=== PATIENT | male | born 1990 | race African-American/Black ===

== ENCOUNTER 2017-09-16 14:39 | Emergency (ER) | payer OTHER ==
[2017-09-16 14:48] VITALS: BMI 21.1
[2017-09-16] MEDS ORDERED: ACETAMINOPHEN 325 MG TABLET (FP) PO ONE (15:11)
[2017-09-16] MEDS ORDERED: SODIUM CHLORIDE 1,000 ML IV STA (15:11)
[2017-09-16] MEDS ORDERED: PANTOPRAZOLE SODIUM 40 MG VIAL IVPUSH ONE (15:11)
[2017-09-16] MEDS ORDERED: MAG HYDROX/AL HYDROX/SIMETH 30 ML UNIT-DOSE CUP PO ONE (15:11)
[2017-09-16] MEDS ORDERED: FAMOTIDINE IV 20 MG/12 ML VIAL IVPUSH ONE (15:11)
[2017-09-16] MEDS ORDERED: ONDANSETRON 4 MG/2 ML VIAL IVPB ONE (15:11)
--- NOTE | 2017-09-16 15:16 | PDOC ---
History of Present Illness - History of Present Illness Initial Comments: 09/16/17 15:23 Patient is a 27 M, with PMHx of sickle cell trait, who presents today for loss of appetite for 5 days. Patient also reports vomit since , loose watery stools, nausea (worse after eating, improves after smoking), and epigastric pain. Patient reports that he has experienced this before last year, etiology unknown. Patient reports that last month he participated in a study at [facility] about the effects of certain pills and marijuana use. He was given placebo pills and some other pill for 5 days. He states that he tried taking pepto bismol with no relief. He also tried eating but he vomits every time he eats no matter what he eats. Patient denies sick contacts, recent travel. Allergies: amoxicillan Social Hx: smokes marijuana. Denies EtOH use. <Sadaf Singleton - Last Filed: 09/16/17 15:30> - General History Source: Patient Exam Limitations: No Limitations <Davidson Grayson - Last Filed: 09/16/17 19:13> <Rhoda Guzman - Last Filed: 09/16/17 20:20> - General Chief Complaint: Vomiting/Diarrhea Stated Complaint: VOMITING, DIARRHEA Time Seen by Provider: 09/16/17 15:03 Past History <Sadaf Singleton - Last Filed: 09/16/17 15:30> - Past Medical History COPD: No - Suicide/Smoking/Psychosocial Hx Smoking History: Current every day smoker Number of Cigarettes Smoked Daily: 10 Information on smoking cessation initiated: No <Davidson Grayson - Last Filed: 09/16/17 19:13> <Rhoda Guzman - Last Filed: 09/16/17 20:20> - Past Medical History Allergies/Adverse Reactions: Allergies Allergy/AdvReac Type Severity Reaction Status Date / Time amoxicillin [Amoxicillin] Allergy Verified 09/16/17 14:48 Home Medications: Ambulatory Orders Acetaminophen [Tylenol] 650 mg PO Q4H PRN #20 tablet 09/16/17 Mag Hydrox/Al Hydrox/Simeth [Mylanta Suspension -] 30 ml PO Q6H PRN #1 bottle Ondansetron HCl [Zofran] 4 mg PO Q8H PRN #20 tablet 09/16/17 Pantoprazole Sodium [Protonix] 40 mg PO DAILY #14 tablet. 09/16/17 Ranitidine HCl [Zantac] 150 mg PO BID PRN #20 tablet 09/16/17 Review of Systems - Review of Systems Comments:: 09/16/17 15:23 GENERAL/CONSTITUTIONAL: No fever or chills. HEAD, EYES, EARS, NOSE AND THROAT: No change in vision. No ear pain or discharge. No sore throat. CARDIOVASCULAR: No chest pain or shortness of breath. RESPIRATORY: No cough, wheezing, or hemoptysis. GASTROINTESTINAL: +nausea, +vomiting, +diarrhea GENITOURINARY: No dysuria, frequency, or change in urination. MUSCULOSKELETAL: No joint or muscle swelling or pain. No neck or back pain. SKIN: No rash NEUROLOGIC: No headache, vertigo, loss of consciousness, or change in strength/ sensation. ENDOCRINE: +decreased po intake. + loss of appetite. No increased thirst. HEMATOLOGIC/LYMPHATIC: No anemia, easy bleeding, or history of blood clots. ALLERGIC/IMMUNOLOGIC: No hives or skin allergy. <Sadaf Singleton - Last Filed: 09/16/17 15:30> *Physical Exam - Vital Signs Last Vital Signs Temp Pulse Resp BP Pulse Ox 98 F 60 18 139/73 99 09/16/17 14:45 09/16/17 14:45 09/16/17 14:45 09/16/17 14:45 09/16/17 14:45 - Physical Exam Comments: 09/16/17 15:32 GENERAL: Awake, alert, and fully oriented, in no acute distress HEAD: No signs of trauma EYES: PERRLA, EOMI, sclera anicteric, conjunctiva clear ENT: Auricles normal inspection, hearing grossly normal, nares patent, oropharynx clear without exudates. Moist mucosa NECK: Normal ROM, supple, no lymphadenopathy, JVD, or masses LUNGS: Breath sounds equal, clear to auscultation bilaterally. No wheezes, and no crackles HEART: Regular rate and rhythm, normal S1 and S2, no murmurs, rubs or gallops ABDOMEN: Soft, right upper quadrant tenderness. Normoactive bowel sounds. No guarding, no rebound. No masses EXTREMITIES: Normal range of motion, no edema. No clubbing or cyanosis. No cords, erythema, or tenderness NEUROLOGICAL: Cranial nerves II through XII grossly intact. Normal speech, normal gait SKIN: Warm, Dry, normal turgor, no rashes or lesions noted. <Sadaf Singleton - Last Filed: 09/16/17 15:30> - Vital Signs Last Vital Signs Temp Pulse Resp BP Pulse Ox 98 F 60 18 139/73 99 09/16/17 14:45 09/16/17 14:45 09/16/17 14:45 09/16/17 14:45 09/16/17 14:45 <Davidson Grayson - Last Filed: 09/16/17 19:13> - Vital Signs Last Vital Signs Temp Pulse Resp BP Pulse Ox 98.8 F 53 L 16 117/69 100 09/16/17 18:42 09/16/17 18:42 09/16/17 18:42 09/16/17 18:42 09/16/17 18:42 <Rhoda Guzman - Last Filed: 09/16/17 20:20> ED Treatment Course - LABORATORY CBC & Chemistry Diagram: 09/16/17 15:19 09/16/17 15:19 <Sadaf Singleton - Last Filed: 09/16/17 15:30> - LABORATORY CBC & Chemistry Diagram: 09/16/17 15:19 09/16/17 15:19 - RADIOLOGY Radiology Studies Ordered: Category Date Time Status ABDOMEN US -LIMITED [US] Stat Ultrasound 09/16/17 15:11 Ordered <Davidson Grayson - Last Filed: 09/16/17 19:13> - LABORATORY CBC & Chemistry Diagram: 09/16/17 15:19 09/16/17 15:19 - ADDITIONAL ORDERS Additional order review: Laboratory Results 09/16/17 09/16/17 15:19 15:11 Sodium 135 L Potassium 4.0 Chloride 98 Carbon Dioxide 26 Anion Gap 11 BUN 9 Creatinine 1.1 Creat Clearance w eGFR > 60 Random Glucose 95 Calcium 9.7 Total Bilirubin 1.1 H AST 14 L ALT 25 Alkaline Phosphatase 68 Total Protein 8.8 H Albumin 4.6 Lipase 100 Urine Color Yellow Urine Appearance Clear Urine pH 5.0 Ur Specific [place] 1.027 Urine Protein Negative Urine Glucose (UA) Negative Urine Ketones 2+ H Urine Blood Negative Urine Nitrite Negative Urine Bilirubin Negative Urine Urobilinogen Negative Ur Leukocyte Esterase Negative 09/16/17 15:19 RBC 5.46 MCV 86.6 MCHC 32.8 RDW 13.7 MPV 8.1 Neutrophils % 63.6 Lymphocytes % 24.2 Monocytes % 11.2 H Eosinophils % 0.4 Basophils % 0.6 - Medications Given in the ED: ED Medications Discontinued Medications Generic Name Dose Route Start Last Admin Trade Name Agustina PRN Reason Stop Dose Admin Acetaminophen 650 mg 09/16/17 15:11 09/16/17 15:30 Tylenol - PO 09/16/17 15:12 650 mg ONCE ONE Administration Al Hydroxide/Mg Hydroxide 30 ml 09/16/17 15:11 09/16/17 15:30 Mylanta Oral Suspension - PO 09/16/17 15:12 30 ml ONCE ONE Administration Famotidine 20 mg in 12 mls @ 144 mls/hr 09/16/17 15:11 09/16/17 15:30 Pepcid 20 Mg/12 Ml Push IVPUSH 09/16/17 15:15 144 mls/hr ONCE ONE Administration Sodium Chloride 1,000 mls @ 1,000 mls/hr 09/16/17 15:11 09/16/17 15:30 Normal Saline - IV 09/16/17 16:10 1,000 mls/hr ASDIR STA Administration Ondansetron HCl 4 mg 09/16/17 15:11 09/16/17 15:30 Zofran Injection IVPB 09/16/17 15:12 4 mg ONCE ONE Administration Pantoprazole Sodium 40 mg 09/16/17 15:11 09/16/17 15:30 Protonix Iv IVPUSH 09/16/17 15:12 40 mg ONCE ONE Administration <Rhoda Guzman - Last Filed: 09/16/17 20:20> Medical Decision Making - Medical Decision Making 09/16/17 15:15 A portion of this note was documented by scribe services under my direction. I have reviewed the details of the note, within reason, and agree with the documentation with the following case summary and management plan written by me. Patient treated in the ED. Nursing notes are reviewed and incorporated into the medical decision-making. Vital signs reviewed. Peripheral IV access obtained by the nurse, laboratory studies are drawn and sent, reviewed and interpreted by myself. Vital Signs Temp Pulse Resp BP Pulse Ox 98 F 60 18 139/73 99 09/16/17 14:45 09/16/17 14:45 09/16/17 14:45 09/16/17 14:45 09/16/17 14:45 27-year-old male with no past medical history presents with nausea, vomiting, diarrhea for 4 days. Patient reports decreased appetite and noted he is developing epigastric pain. States that eating or drinking worsens the symptoms. Denies fevers or chills or sick contacts. Denies going camping. Denies recent traveling. It is possible that this may be gastritis. However, we'll obtain a right upper quadrant ultrasound given the right upper quadrant pain. Rule out pancreatitis rule out enteritis. It may be possible this is also gastritis as well. Medications and reassess. 09/16/17 18:58 CBC, BMP 09/16/17 15:19 09/16/17 15:19 CMP Sodium 135 mmol/L (136-145) L 09/16/17 15:19 Potassium 4.0 mmol/L (3.5-5.1) 09/16/17 15:19 Chloride 98 mmol/L (98-107) 09/16/17 15:19 Carbon Dioxide 26 mmol/L (21-32) 09/16/17 15:19 Anion Gap 11 (8-16) 09/16/17 15:19 BUN 9 mg/dL (7-18) 09/16/17 15:19 Creatinine 1.1 mg/dL (0.7-1.3) 09/16/17 15:19 Creat Clearance w eGFR > 60 (>60) 09/16/17 15:19 Random Glucose 95 mg/dL (74-106) 09/16/17 15:19 Calcium 9.7 mg/dL (8.5-10.1) 09/16/17 15:19 Total Bilirubin 1.1 mg/dL (0.2-1.0) H 09/16/17 15:19 AST 14 U/L (15-37) L 09/16/17 15:19 ALT 25 U/L (12-78) 09/16/17 15:19 Alkaline Phosphatase 68 U/L (45-117) 09/16/17 15:19 Total Protein 8.8 g/dl (6.4-8.2) H 09/16/17 15:19 Albumin 4.6 g/dl (3.4-5.0) 09/16/17 15:19 Lipase 100 U/L (73-393) 09/16/17 15:19 Urine Test Results Urine Color Yellow 09/16/17 15:11 Urine Appearance Clear 09/16/17 15:11 Urine pH 5.0 (5.0-8.0) 09/16/17 15:11 Ur Specific [place] 1.027 (1.001-1.035) 09/16/17 15:11 Urine Protein Negative (NEGATIVE) 09/16/17 15:11 Urine Glucose (UA) Negative (NEGATIVE) 09/16/17 15:11 Urine Ketones 2+ (NEGATIVE) H 09/16/17 15:11 Urine Blood Negative (NEGATIVE) 09/16/17 15:11 Urine Nitrite Negative (NEGATIVE) 09/16/17 15:11 Urine Bilirubin Negative (NEGATIVE) 09/16/17 15:11 Ur Leukocyte Esterase Negative (NEGATIVE) 09/16/17 15:11 Pt reports feeling moderately better. U/s pending. Case signed out to Dr. Guzman for further management and disposition. <Davidson Grayson - Last Filed: 09/16/17 19:13> *DC/Admit/Observation/Transfer - Attestations Scribe Attestion: 09/16/17 15:33 Documentation prepared by Sadaf Singleton, acting as medical records analyst for Davidson Grayson MD. <Sadaf Singleton - Last Filed: 09/16/17 15:30> <Davidson Grayson - Last Filed: 09/16/17 19:13> - Discharge Dispostion Admit: No <Rhoda Guzman - Last Filed: 09/16/17 20:20> Diagnosis at time of Disposition: Vomiting Qualifiers: Vomiting type: unspecified Vomiting Intractability: non-intractable Nausea presence: without nausea Qualified Code(s): R11.11 - Vomiting without nausea Diarrhea Qualifiers: Diarrhea type: unspecified type Qualified Code(s): R19.7 - Diarrhea, unspecified - Discharge Dispostion Disposition: HOME Condition at time of disposition: Stable - Prescriptions Prescriptions: Acetaminophen [Tylenol] 650 mg PO Q4H PRN #20 tablet PRN Reason: Pain Mag Hydrox/Al Hydrox/Simeth [Mylanta Suspension -] 30 ml PO Q6H PRN #1 bottle PRN Reason: Pain Ondansetron HCl [Zofran] 4 mg PO Q8H PRN #20 tablet PRN Reason: Nausea Pantoprazole Sodium [Protonix] 40 mg PO DAILY #14 tablet. Ranitidine HCl [Zantac] 150 mg PO BID PRN #20 tablet PRN Reason: GERD - Referrals Referrals: Joselito Eduardo MD [Primary Care Provider] - Venkata Barlow MD [Staff Physician] - - Patient Instructions Printed Discharge Instructions: DI for Gastritis, DI for Abdominal Pain-Adult, DI for Vomiting -- Adult Additional Instructions: Please drink plenty of fluids. Take the medications as needed for symptom control. Follow up with your doctor. - Post Discharge Activity
[2017-09-16 15:26] LABS: BASO % 0.6 % (0-2.0); EOS % 0.4 % (0-4.5); HEMATOCRIT 47.2 % (35.4-49); HEMOGLOBIN 15.5 GM/dL (11.7-16.9); LYMPH % 24.2 % (8-40); MCH 28.4 pg (25.7-33.7); MCHC 32.8 g/dl (32.0-35.9); MEAN CELL VOLUME 86.6 fl (80-96); MEAN PLT VOLUME 8.1 fl (7.5-11.1); MONO % 11.2 % (3.8-10.2); NEUT % 63.6 % (42.8-82.8); PLATELET COUNT 196 K/MM3 (134-434); RBC 5.46 M/mm3 (4.00-5.60); RDW 13.7 % (11.9-15.9); WHITE BLOOD COUNT 5.2 K/mm3 (4.0-10.0)
[2017-09-16] MEDS ORDERED: PANTOPRAZOLE SODIUM 40 MG VIAL ONE (15:29)
[2017-09-16] MEDS ORDERED: ONDANSETRON 4 MG/2 ML VIAL ONE (15:29)
[2017-09-16] MEDS ORDERED: MAG HYDROX/AL HYDROX/SIMETH 30 ML UNIT-DOSE CUP ONE (15:29)
[2017-09-16] MEDS ORDERED: ACETAMINOPHEN 325 MG TABLET (FP) ONE (15:29)
[2017-09-16] MEDS ORDERED: FAMOTIDINE 20 MG/50 ML IVPB 20 MG/50 ML MG IVPB ONE (15:29)
[2017-09-16 15:43] LABS: URINE APPEARANCE CLEAR; URINE BILIRUBIN NEGATIVE (NEGATIVE); URINE BLOOD NEGATIVE (NEGATIVE); URINE COLOR YELLOW; URINE GLUCOSE (UA) NEGATIVE (NEGATIVE); URINE KETONE 2+ (NEGATIVE); URINE LEUK ESTERASE NEGATIVE (NEGATIVE); URINE NITRITE NEGATIVE (NEGATIVE); URINE PROTEIN NEGATIVE (NEGATIVE); URINE UROBILINOGEN NEGATIVE mg/dL (0.2-1.0)
[2017-09-16 15:51] LABS: ALBUMIN 4.6 g/dl (3.4-5.0); ANION GAP 11 (8-16); BILIRUBIN,TOTAL 1.1 mg/dL (0.2-1.0); BLOOD UREA NITROGEN 9 mg/dL (7-18); CALCIUM 9.7 mg/dL (8.5-10.1); CHLORIDE 98 mmol/L (98-107); CO2 26 mmol/L (21-32); CREATININE 1.1 mg/dL (0.7-1.3); GLUCOSE,RANDOM 95 mg/dL (74-106); LIPASE 100 U/L (73-393); SGOT/AST 14 U/L (15-37); SGPT/ALT 25 U/L (12-78); SODIUM 135 mmol/L (136-145); TOT PROT 8.8 g/dl (6.4-8.2)
[2017-09-16 15:52] LABS: ALK PHOS 68 U/L (45-117)
[2017-09-16 18:43] VITALS: BP 117/69; PULSE 53; TEMP 98.8
== END 2017-09-16 20:41 | disposition home or self-care (01) ==
LOC: JER 14:39
DX: R19.7 Diarrhea, unspecified (principal); K29.70 Gastritis, unspecified, without bleeding; D57.3 Sickle-cell trait; F17.210 Nicotine dependence, cigarettes, uncomplicated
CPT/HCPCS: 36415; 76705-TC; 80053; 81003; 83690; 85025; 87086; 99281-25

== ENCOUNTER 2018-08-27 00:07 | Emergency (ER) | payer OTHER ==
[2018-08-27 00:23] VITALS: BP 128/77; PULSE 103; TEMP 99; BMI 24.2
[2018-08-27] MEDS ORDERED: ONDANSETRON 4 MG/2 ML VIAL IVPUSH ONE ×2 (01:36→03:37)
--- NOTE | 2018-08-27 01:36 | PDOC ---
Attending Attestation - HPI HPI: 08/27/18 01:47 The patient is a 27 year old male, with no significant past medical history, who presents to the emergency department with, 1 day of nausea, vomiting, and diffuse abdominal pain. He denies any recent fevers, chills, headache or dizziness. He denies any recent chest pain or shortness of breath. He denies any recent dysuria, frequency, urgency or hematuria. Allergies: Amoxicillin Past surgical history: None reported. Primary Care Physician: Dr. Joselito Eduardo - Physicial Exam PE: 08/27/18 01:47 GENERAL: Well-appearing, well-nourished. No apparent distress. HEENT: Normocephalic, atraumatic. PERRL, EOM intact. CARDIOVASCULAR: Normal S1, S2. Regular rate and rhythm. PULMONARY: Clear to auscultation bilaterally. +ABDOMEN: Epigastric discomfort. Soft, non-distended. EXTREMITIES: Normal ROM in all four extremities. No gross deformities. SKIN: Warm, dry. No rash NEUROLOGICAL: No focal neurological deficits. <Leny De Los Santos - Last Filed: 08/27/18 01:47> - Resident Resident Name: Wilver Ward - ED Attending Attestation I have performed the following: I have examined & evaluated the patient, The case was reviewed & discussed with the resident, I agree w/resident's findings & plan, Exceptions are as noted - Medical Decision Making 08/27/18 01:50 27-year-old male presents with nausea and vomiting that started this morning. He's had 4 episodes of vomiting and 2 episodes of loose stools. His mother also has the same symptoms benign abd exam, dry mucus members differential diagnosis: gastroenteritis,cholecystitis plan: IVF,anti emetics,reassess <Ilene Arthur - Last Filed: 08/27/18 01:55> Attestations - Attestations 08/27/18 01:47 Documentation prepared by Leny De Los Santos, acting as nuclear medicine medical director for Ilene Arthur MD. <Leny De Los Santos - Last Filed: 08/27/18 01:47>
--- NOTE | 2018-08-27 01:44 | PDOC ---
History of Present Illness - General Chief Complaint: Nausea/Vomiting Stated Complaint: VOMITING,DIZZINESS Time Seen by Provider: 08/27/18 01:30 History Source: Patient Exam Limitations: No Limitations - History of Present Illness Initial Comments: Patient is a 27 y/o M w/ no significant PMHx p/w sudden onset nausea, vomiting, and epigastric pain accompanied by subjective fever and chills since this morning. Shared a [place] meal with his mother on Sunday; she is now experiencing the same symptoms with the same onset. Approximately 5 episodes of NBNB vomiting, 2 episodes loose stools, nausea has been constant, pain in waves. No other complaints. Afebrile, mildly tachycardic on presentation, otherwise vitals stable. Daily tobacco and cannabis smoker. PMD is Joselito Eduardo. 08/27/18 01:39 Past History - Past Medical History Allergies/Adverse Reactions: Allergies Allergy/AdvReac Type Severity Reaction Status Date / Time amoxicillin [Amoxicillin] Allergy Verified 08/27/18 02:20 Home Medications: Ambulatory Orders NK [No Known Home Medication] 08/27/18 COPD: No - Suicide/Smoking/Psychosocial Hx Smoking History: Current every day smoker Number of Cigarettes Smoked Daily: 2 Information on smoking cessation initiated: Yes Hx Alcohol Use: Yes Drug/Substance Use Hx: Yes (MJ) Review of Systems - Review of Systems Comments:: As per HPI 08/27/18 01:42 *Physical Exam - Vital Signs Last Vital Signs Temp Pulse Resp BP Pulse Ox 99 F 103 H 20 128/77 97 08/27/18 00:11 08/27/18 00:11 08/27/18 00:11 08/27/18 00:11 08/27/18 00:11 - Physical Exam Comments: Gen: A&Ox3, in mild distress HEENT: NC/AT, PERRLA, EOMI Neck: supple, non-tender CV: borderline tachycardic no m/r/g Resp: CTA b/l Abd: +bs, soft, TTP in epigastrum Ext: 2+ pulses, wwp Neuro: breakfast bar attendant, motor, sensory systems w/o focal deficit Psych: normal mood, normal affect Skin: warm, dry, normal turgor 08/27/18 01:42 Moderate Sedation - Procedure Monitoring Vital Signs: Procedure Monitoring Vital Signs Temperature 99 F 02/05/19 00:11 Pulse Rate 103 H 08/27/18 00:11 Respiratory Rate 20 08/27/18 00:11 Blood Pressure 128/77 08/27/18 00:11 O2 Sat by Pulse Oximetry (%) 97 08/27/18 00:11 Medical Decision Making - Medical Decision Making Presentation is virtually identical to his mother's. Likely viral gastroenteritis vs. food poisoning. Ordered CBC, CMP, UA, EKG. Giving Zofran and LR. 08/27/18 01:44 CBC/CMP wnl 08/27/18 03:12 Nausea improved with Zofran. Providing PO challenge. 08/27/18 03:25 EKG: NSR w/ early repolarizations, QTc 402 08/27/18 03:35 Patient complains of feeling dehydrated, tolerated juice mild residual nausea. Providing 2nd dose of Zofran and NS bolus. 08/27/18 03:45 Pt received 2nd dose of Zofran but refuses 2nd bolus. States he is feeling better. Given tolerance of PO, will dc patient. 08/27/18 04:19 *DC/Admit/Observation/Transfer Diagnosis at time of Disposition: Gastroenteritis - Discharge Dispostion Disposition: HOME Condition at time of disposition: Stable - Referrals Referrals: Joselito Eduardo MD [Primary Care Provider] - - Patient Instructions Printed Discharge Instructions: DI for Viral Gastroenteritis -- Adult Additional Instructions: You were evaluated and treated for gastroenteritis. All studies were reassuring. Please advance your diet slowly and take in plenty of fluids. Please follow up with Dr. Eduardo at your earliest opportunity. If you develop worsening nausea and vomiting, diarrhea, abdominal pain, chest pain, shortness of breath, or any other new or concerning symptom, please return to the ED. - Post Discharge Activity
[2018-08-27] MEDS ORDERED: LACTATED RINGERS SOLUTION 1000 ML INFUS.BAG IV ONE (01:45)
[2018-08-27] MEDS ORDERED: ONDANSETRON 4 MG/2 ML VIAL ONE ×2 (02:39→04:03)
[2018-08-27 02:43] LABS: BASO % 0.2 % (0-2.0); EOS % 0.2 % (0-4.5); HEMATOCRIT 42.8 % (35.4-49); LYMPH % 5.5 % (8-40); MCH 30.2 pg (25.7-33.7); MCHC 35.1 g/dl (32.0-35.9); MEAN CELL VOLUME 86.1 fl (80-96); MEAN PLT VOLUME 8.4 fl (7.5-11.1); MONO % 7.2 % (3.8-10.2); NEUT % 86.9 % (42.8-82.8); PLATELET COUNT 158 K/MM3 (134-434); RBC 4.97 M/mm3 (4.00-5.60); RDW 13.5 % (11.9-15.9); WHITE BLOOD COUNT 7.1 K/mm3 (4.0-10.0)
[2018-08-27 03:10] LABS: ALBUMIN 4.1 g/dl (3.4-5.0); ALK PHOS 69 U/L (45-117); ANION GAP 6 MMOL/L (8-16); BILIRUBIN,TOTAL 0.5 mg/dL (0.2-1); BLOOD UREA NITROGEN 12 mg/dL (7-18); CALCIUM 8.7 mg/dL (8.5-10.1); CHLORIDE 101 mmol/L (98-107); CO2 30 mmol/L (21-32); GLUCOSE,RANDOM 100 mg/dL (74-106); POTASSIUM 4.1 mmol/L (3.5-5.1); SGOT/AST 23 U/L (15-37); SGPT/ALT 31 U/L (13-61); SODIUM 137 mmol/L (136-145); TOT PROT 7.6 g/dl (6.4-8.2)
[2018-08-27] MEDS ORDERED: SODIUM CHLORIDE 1,000 ML IV STA (03:37)
--- NOTE | 2018-08-27 15:05 | EKG ---
Test Reason : Blood Pressure : / mmHG Vent. Rate : 072 BPM Atrial Rate : 072 BPM P-R Int : 180 ms QRS Dur : 086 ms QT Int : 368 ms P-R-T Axes : 073 074 068 degrees QTc Int : 402 ms / NORMAL SINUS RHYTHM WITH SINUS ARRHYTHMIA EARLY REPOLARIZATION NORMAL ECG NO PREVIOUS ECGS AVAILABLE Confirmed by Braulio Galan MD ([id number]) on 08/27/2018 3:05:08 PM Referred By: Confirmed By:Braulio Galan MD
== END 2018-08-27 04:44 | disposition home or self-care (01) ==
LOC: JER 00:07
DX: K52.9 Noninfective gastroenteritis and colitis, unspecified (principal)
CPT/HCPCS: 36415; 80053; 85025; 93005; 93010; 99283-25

== ENCOUNTER 2019-02-01 01:33 | Emergency (ER) | payer OTHER ==
[2019-02-01 01:46] VITALS: BP 117/61; PULSE 53; TEMP 98.3; BMI 23.6
--- NOTE | 2019-02-01 03:42 | PDOC ---
Attending Attestation - Resident Resident Name: Jacobo Gore - ED Attending Attestation I have performed the following: I have examined & evaluated the patient, The case was reviewed & discussed with the resident, I agree w/resident's findings & plan - HPI HPI: 02/01/19 05:40 Pt got crazy glue in his right eye and now vison is blurry. Pt has no other complaints. - Physicial Exam PE: 02/01/19 05:41 Agree with resident exam. Vision tested and WNL. Fluorescine exam reveals no corneal injury. - Medical Decision Making 02/01/19 05:41 Pt will be treated with erythromycin regardless; tetracaine alleviated pain a bit.
--- NOTE | 2019-02-01 04:26 | PDOC ---
History of Present Illness - General Chief Complaint: Eye Problem Stated Complaint: BLURRY VISION IN RIGHT EYE Time Seen by Provider: 02/01/19 03:06 - History of Present Illness Initial Comments: 02/01/19 04:22 28 yo M with no significant pmh who p/w right eye blurry vision. Patient reports blurry vision following exposure of "crazy glue," to right eye. Patient states that he feels sensation of foreign object in R eye. Denies pain with eye movements. Flushed eye with water at home per patient. Patient denies PEREZ, palpitations, cough, wheezing, orthopena, PND, leg swelling/ pain, N/V, F,C, CP, SOB, urinary complaints, hematuria, BPR, abdominal pain, diarrhea, constipation, lightheadedness, weakness, sensory changes. PMHx: as noted above ROS: as noted SHx: Denies Etoh, IVDA, tobacco use Allergies: NKDA Past History - Past Medical History Allergies/Adverse Reactions: Allergies Allergy/AdvReac Type Severity Reaction Status Date / Time amoxicillin [Amoxicillin] Allergy Verified 02/01/19 01:44 Home Medications: Ambulatory Orders NK [No Known Home Medication] 08/27/18 COPD: No - Immunization History Immunization Up to Date: Yes - Suicide/Smoking/Psychosocial Hx Smoking History: Current every day smoker Number of Cigarettes Smoked Daily: 5 Information on smoking cessation initiated: No Hx Alcohol Use: No Drug/Substance Use Hx: No Review of Systems - Review of Systems Comments:: 02/01/19 04:32 GENERAL/CONSTITUTIONAL: No fever or chills. No weakness. HEAD, EYES, EARS, NOSE AND THROAT: +change in vision, + right eye pain. No ear pain or discharge. No sore throat. CARDIOVASCULAR: No chest pain or shortness of breath RESPIRATORY: No cough, wheezing, or hemoptysis. GASTROINTESTINAL: No nausea, vomiting, diarrhea or constipation. GENITOURINARY: No dysuria, frequency, or change in urination. MUSCULOSKELETAL: No joint or muscle swelling or pain. No neck or back pain. SKIN: No rash NEUROLOGIC: No headache, vertigo, loss of consciousness, or change in strength/ sensation. ENDOCRINE: No increased thirst. No abnormal weight change HEMATOLOGIC/LYMPHATIC: No anemia, easy bleeding, or history of blood clots. ALLERGIC/IMMUNOLOGIC: No hives or skin allergy. *Physical Exam - Vital Signs Last Vital Signs Temp Pulse Resp BP Pulse Ox 98.3 F 53 L 20 117/61 99 02/01/19 01:44 02/01/19 01:44 02/01/19 01:44 02/01/19 01:44 02/01/19 01:44 - Physical Exam Comments: 02/01/19 04:32 GENERAL: Awake, alert, and fully oriented, in no acute distress HEAD: No signs of trauma, normocephalic, atraumatic EYES: + R eye slceral injection. 20/40 OS, 20/80 OD. PERRLA, EOMI, sclera anicteric. ENT: Auricles normal inspection, hearing grossly normal, nares patent, oropharynx clear without exudates. Moist mucosa NECK: Normal ROM, supple, no lymphadenopathy, JVD, or masses LUNGS: No distress, speaks full sentences, clear to auscultation bilaterally HEART: Regular rate and rhythm, normal S1 and S2, no murmurs, rubs or gallops, peripheral pulses normal and equal bilaterally. ABDOMEN: Soft, nontender, normoactive bowel sounds. No guarding, no rebound. No masses EXTREMITIES : Normal inspection, Normal range of motion, no edema. No clubbing or cyanosis. NEUROLOGICAL: Cranial nerves II through XII grossly intact. Normal speech, normal gait, no focal sensorimotor deficits SKIN: Warm, Dry, normal turgor, no rashes or lesions noted Medical Decision Making - Medical Decision Making 02/01/19 04:23 28 yo M with no significant pmh who p/w right eye blurry vision. Vitals wnl, AF , A&Ox3. Physical exam unremarkable.Decreased visual acuity R eye. EOMI, PERRL. Will evaluate for corneal abrasion. No evidence of infection/conjunctivitis, absent discharge or drainage from eye OU. No evidence retinal or vitreous detachment, acute angle closure glaucoma. Ed Course: 02/01/19 04:49 No evidence of corneal abrasion on fluoroscein testing. Tetracaine drop to eye with improvement of symptoms erythromycin to eye Stable for d/c with return precautions *DC/Admit/Observation/Transfer Diagnosis at time of Disposition: Chemical insult, eye Qualifiers: Encounter type: initial encounter Laterality: right Qualified Code(s): T26.91XA - Corrosion of right eye and adnexa, part unspecified, initial encounter - Discharge Dispostion Disposition: HOME Condition at time of disposition: Stable Decision to Admit order: No - Referrals Referrals: Joselito Eduardo MD [Primary Care Provider] - - Patient Instructions Printed Discharge Instructions: DI for Eye Pain Additional Instructions: Please return to the emergency department with any new or worsening symptoms or concerns. Please follow up with your primary care physician within 72 hours. - Post Discharge Activity
[2019-02-01] MEDS ORDERED: ERYTHROMYCIN 0.5% OPHTHALMIC OINTMENT 3.5 GM TUBE OD ONE (04:31)
[2019-02-01] MEDS ORDERED: FLUORESCEIN NA 1 EA STRIP ONE (04:32)
[2019-02-01] MEDS ORDERED: TETRACAINE 0.5% OPHTH SOLN 2 ML BOTTLE ONE (04:32)
[2019-02-01] MEDS ORDERED: ERYTHROMYCIN 0.5% OPHTHALMIC OINTMENT 3.5 GM TUBE ONE (04:32)
== END 2019-02-01 05:19 | disposition home or self-care (01) ==
LOC: JER 01:33
DX: T26.91XA Corrosion of right eye and adnexa, part unspecified, initial encounter (principal); Z77.098 Contact with and (suspected) exposure to other hazardous, chiefly nonmedicinal, chemicals; H53.141 Visual discomfort, right eye; Y92.89 Other specified places as the place of occurrence of the external cause
CPT/HCPCS: 99281-25

== ENCOUNTER 2019-08-16 14:24 | Emergency (ER) | payer OTHER ==
[2019-08-16 14:30] VITALS: BMI 23.6
--- NOTE | 2019-08-16 14:37 | PDOC ---
History of Present Illness - General Chief Complaint: Chest Pain Stated Complaint: CHEST PAIN Time Seen by Provider: 08/16/19 14:35 - History of Present Illness Initial Comments: 08/16/19 14:37 HPI: 28 y/o M with no pmh presenting for re-evaluation for new diagnosis of pericarditis 2 days ago. He states he was diagnosed with influenza 1.5 weeks ago and was prescribed a course of tamiflu and had improvement of symptoms. 2 days ago he started feeling generalized chest pain with radiation to the back with nonproductive cough. Chest pain was worse with deep inspirations and motion. Also reporting SOB worse on exertion. He went to an urgent care and was referred to [facility] for abnormal ekg. At hemet he was diagnosed with pericarditis and stayed in obs unit. Upon DC yesterday, he did not take his prescribed 800mg ibuprofen as instructed and felt worsening pain today. He followed up with his PCP Dr Joselito Eduardo today and had an US performed and was told he did not have pericarditis. He is here today because persistent pain and SOB and for exaplanation of dx. He denies fever, chills, PEREZ , LH, n/v, abd pain, syncope. PMHx: as noted above ROS: as noted SHx: Denies tobacco use; no alcohol use; MJ Allergies: NKDA ROS: GENERAL/CONSTITUTIONAL: No fever or chills. No weakness. HEAD, EYES, EARS, NOSE AND THROAT: No change in vision. No ear pain or discharge. No sore throat. CARDIOVASCULAR: +chest pain and shortness of breath RESPIRATORY: No wheezing, or hemoptysis. GASTROINTESTINAL: No nausea, vomiting, diarrhea or constipation. GENITOURINARY: No dysuria, frequency, or change in urination. MUSCULOSKELETAL: No joint or muscle swelling or pain. No neck or back pain. SKIN: No rash NEUROLOGIC: No headache, vertigo, loss of consciousness, or change in strength/ sensation. ENDOCRINE: No increased thirst. No abnormal weight change HEMATOLOGIC/LYMPHATIC: No anemia, easy bleeding, or history of blood clots. ALLERGIC/IMMUNOLOGIC: No hives or skin allergy. PE: GENERAL: Awake, alert, and fully oriented, no acute distress HEAD: No signs of trauma, normocephalic, atraumatic EYES: EOMI, sclera anicteric, conjunctiva clear ENT: Auricles normal inspection, hearing grossly normal, nares patent, oropharynx clear without exudates. Moist mucosa NECK: Normal ROM, no lymphadenopathy LUNGS: No increased work of breathing, symmetrical chest rise, clear to auscultation bilaterally, no wheezes, crackles or rhonchi HEART: Regular rate, regular rhythm, normal S1 and S2, no murmur, peripheral pulses 2+ and equal bilaterally. ABDOMEN: Soft, nondistended, nontender, normoactive bowel sounds. No guarding, no rebound. No masses. No CVAT MUSCULOSKELETAL: FROM NEUROLOGICAL: Cranial nerves II through XII grossly intact. Normal speech, normal gait, no focal sensorimotor deficits SKIN: Warm, Dry, normal turgor, no rashes or lesions noted Past History - Past Medical History Allergies/Adverse Reactions: Allergies Allergy/AdvReac Type Severity Reaction Status Date / Time amoxicillin [Amoxicillin] Allergy Verified 02/01/19 01:44 Home Medications: Ambulatory Orders Colchicine [Colcrys] 0.6 mg PO BID 08/16/19 Ibuprofen 800 mg PO TID 7 Days #21 tablet 08/16/19 Ibuprofen [Ibu] 600 mg PO Q8H PRN 08/16/19 COPD: No - Immunization History Immunization Up to Date: Yes - Psycho Social/Smoking Cessation Hx Smoking History: Never smoked Have you smoked in the past 12 months: No Number of Cigarettes Smoked Daily: 5 Information on smoking cessation initiated: No Hx Alcohol Use: No Drug/Substance Use Hx: No *Physical Exam - Vital Signs Last Vital Signs Temp Pulse Resp BP Pulse Ox 98.0 F 73 18 130/76 100 08/16/19 14:26 08/16/19 14:26 08/16/19 14:26 08/16/19 14:26 08/16/19 14:26 Medical Decision Making - Medical Decision Making 08/16/19 16:42 28 y/o M with no pmh presenting for re-evaluation for new diagnosis of pericarditis 2 days ago with complaints of chest pain and SOB. VSS, AF. PE unremarkable. Will rule out perimyocarditis -cbc, cmp, trop, ekg, cxr -ivf, toradol 08/16/19 16:43 ekg: diffuse SALONI with depressed PA intervals, nl intervals, nsr cxr: no acute pathology labs unremarkable reassured patient regarding diagnosis of pericarditis and explained disease process; explained that medicine compliance is important and that chest pain and SOB may persist for up to 1-2 weeks he understands and all questions were answered; will provide cards referral as well as pcp followup. additional week of ibuprofen prescribed to pharmacy Discharge - Discharge Information Problems reviewed: Yes Clinical Impression/Diagnosis: Pericarditis Qualifiers: Pericarditis type: unspecified type Chronicity: acute Qualified Code(s): I30.9 - Acute pericarditis, unspecified Condition: Stable Disposition: HOME - Follow up/Referral - Patient Discharge Instructions Patient Printed Discharge Instructions: Pericarditis -- Adult Additional Instructions: Additional Instructions: Please return to the emergency department with any new or worsening symptoms or concerns including fever, swelling in your legs, significant cough, significant activity intolerance (not able to walk to bathroom because difficulty breathing) , worsening chest pain. Please follow up with you the physician credentialing specialist referral Dr Styles within 1 week for re-evaluation. Please follow up with your PCP Dr Eduardo for symptom re- evaluation and medication refill if needed Please take ibuprofen 800mg every 8 hours for pain control and anti- inflammatory effects for at least 1-2 weeks until symptoms have subsided. Following improvement of symptoms, you will need to continue to take ibuprofen for an additional 2-4 weeks to prevent recurrence of pericarditis; discuss with the physician credentialing specialist tapered dosage regimen (likely 600-800mg 1-2 times a day for 1- 2 additional weeks). Please take colchicine as prescribed - Post Discharge Activity
--- NOTE | 2019-08-16 14:48 | PDOC ---
Documentation entered by Leny De Los Santos SCRIBE, acting as scribe for Mary Izaguirre DO. Mary Izaguirre DO: This documentation has been prepared by the Filiberto mooney Nirvannie, SCRIBE, under my direction and personally reviewed by me in its entirety. I confirm that the documentation accurately reflects all work, treatment, procedures, and medical decision making performed by me. Attending Attestation - Resident Resident Name: Geno Avalos - ED Attending Attestation I have performed the following: I have examined & evaluated the patient, The case was reviewed & discussed with the resident, I agree w/resident's findings & plan, Exceptions are as noted - HPI HPI: 08/16/19 15:58 The patient is a 28 year old male, with a significant past medical history of possible pericarditis, who presents to the emergency department with 1 week of worsening chest pain. He describes his chest pain as worse while lying flat and alleviated when hunched forward. As per patient, he was tested influenza positive 2 weeks ago and approximately a week ago he developed chest pain and was admitted to [facility] for pericarditis. Patient notes to have been evaluated in his PCPs office at which time he received an echocardiogram and was told he does not have pericarditis. Patient reports taking taking Colchicine and Ibuprofen, without improvement prompting his arrival to the ED. He denies any diaphoresis, palpitations, nausea, or vomiting. Allergies: Amoxicillin. Primary Care Physician: Dr. Eduardo - Physicial Exam PE: 08/16/19 15:58 Constitutional: Awake, alert, oriented. No acute distress. Head: Normocephalic. Atraumatic Eyes: PERRL. EOMI. Conjunctivae are not pale. ENT: Mucous membranes are moist and intact. Posterior pharynx without exudates or erythema. Uvula midline. Neck: Supple. Full ROM. No lymphadenopathy. Cardiovascular: Regular rate. Regular rhythm. S1, S2 regular. Distal pulses are 2+ and symmetric. Pulmonary/Chest: No evidence of respiratory distress. Clear to auscultation bilaterally No wheezing, rales or rhonchi. Abdominal: Soft and non-distended. There is no tenderness. No rebound, guarding or rigidity. No organomegaly. No palpable masses. Good bowel sounds. Back: No CVA tenderness. Musculoskeletal: No edema. No cyanosis. No clubbing. Full range of motion in all extremities. No calf tenderness. Radial/pedal pulses are intact and 2+ bilaterally Skin: Skin is warm and dry. No petechiae. No purpura. Neurological: Alert and oriented to person, place, and time. Cranial nerves II -XII are grossly intact. Normal speech. Strength is grossly symmetric. No sensory deficits. Psychiatric: Good eye contact. Normal interaction, affect and behavior. - Medical Decision Making 08/16/19 15:41 I, Dr. Mary Izaguirre, DO, attest that this document has been prepared under my direction and personally reviewed by me in its entirety. I further attest, that it accurately reflects all work, treatment, procedures and medical decision -making performed by me. a/p: 28yo male with cp- pleuritic pain, sob, worse when flat and better when upright and leaning forward -pt dx with pericarditis at [facility] this week and given colchicine and ibuprofen -pt states decreased po intake bc he had the flu and then pericarditis -pt states taking colchicine and ibuprofen with some relief -had an echo at Dr. eduardo office yesterday and was told echo was normal so he "couldn't have pericarditis" -pt still with cp today -will send labs, trop to eval myocarditis, will hydrate, toradol for pain -bedside echo shows normal ef, Rv:Lv function normal, no pericardial effusion -will monitor and reassess 08/16/19 16:27 cxr clear labs pending 08/16/19 16:27 no elevated wbc 08/16/19 16:36 chem pending if trop neg dc to home with cards and IM follow up Heart Score/ECG Review - ECG Intrepretation Comment:: 08/16/19 14:48 sinus at 63, nl axis, diffuse st elevation with pr depression, lvh, pericarditis pattern
[2019-08-16] MEDS ORDERED: KETOROLAC TROMETHAMINE 30 MG/1 ML VIAL IVPUSH ONE (15:24)
[2019-08-16] MEDS ORDERED: SODIUM CHLORIDE 1,000 ML IV STA (15:36)
[2019-08-16] MEDS ORDERED: KETOROLAC TROMETHAMINE 30 MG/1 ML VIAL ONE (15:38)
[2019-08-16 16:16] LABS: BASO % 0.6 % (0-2.0); EOS % 0.9 % (0-4.5); HEMATOCRIT 39.7 % (35.4-49); HEMOGLOBIN 13.5 GM/dL (11.7-16.9); LYMPH % 40.7 % (8-40); MCH 29.2 pg (25.7-33.7); MEAN CELL VOLUME 85.8 fl (80-96); MEAN PLT VOLUME 8.3 fl (7.5-11.1); MONO % 12.1 % (3.8-10.2); NEUT % 45.7 % (42.8-82.8); PLATELET COUNT 204 K/MM3 (134-434); RBC 4.63 M/mm3 (4.00-5.60); RDW 13.2 % (11.9-15.9); WHITE BLOOD COUNT 5.3 K/mm3 (4.0-10.0)
[2019-08-16] MEDS ORDERED: ALBUTEROL SO4 2.5/IPRATROPIUM 0.5 INH SOL 3 ML VIAL.NEB. NEB ONE ×2 (16:36)
[2019-08-16 16:51] LABS: ALBUMIN 3.8 g/dl (3.4-5.0); ALK PHOS 51 U/L (45-117); ANION GAP 6 MMOL/L (8-16); BILIRUBIN,TOTAL 0.5 mg/dL (0.2-1); BLOOD UREA NITROGEN 4.5 mg/dL (7-18); CHLORIDE 104 mmol/L (98-107); CO2 28 mmol/L (21-32); CREATININE 0.9 mg/dL (0.55-1.3); GLUCOSE,RANDOM 133 mg/dL (74-106); POTASSIUM 3.2 mmol/L (3.5-5.1); SGOT/AST 10 U/L (15-37); SGPT/ALT 18 U/L (13-61); SODIUM 138 mmol/L (136-145); TOT PROT 6.8 g/dl (6.4-8.2)
[2019-08-16] MEDS ORDERED: POTASSIUM CHLORIDE ORAL LIQUID 20 MEQ/15 ML PO ONE (16:54)
[2019-08-16] MEDS ORDERED: POTASSIUM CHLORIDE ORAL LIQUID 20 MEQ/15 ML ONE (16:54)
[2019-08-16 17:03] VITALS: BP 129/86; PULSE 67; TEMP 98.3
--- NOTE | 2019-08-17 12:35 | EKG ---
Test Reason : Blood Pressure : / mmHG Vent. Rate : 063 BPM Atrial Rate : 063 BPM P-R Int : 174 ms QRS Dur : 092 ms QT Int : 392 ms P-R-T Axes : 069 077 072 degrees QTc Int : 401 ms POOR DATA QUALITY, INTERPRETATION MAY BE ADVERSELY AFFECTED NORMAL SINUS RHYTHM VOLTAGE CRITERIA FOR LEFT VENTRICULAR HYPERTROPHY ST ELEVATION, CONSIDER EARLY REPOLARIZATION, PERICARDITIS, OR INJURY NONSPECIFIC ST AND T WAVE ABNORMALITY ABNORMAL ECG WHEN COMPARED WITH ECG OF 27-AUG-2018 02:47, T WAVE INVERSION NOW EVIDENT IN ANTERIOR LEADS Confirmed by RICK HARE MD ([id number]) on 08/17/2019 12:35:41 PM Referred By: Confirmed By:RICK HARE MD
== END 2019-08-16 17:10 | disposition home or self-care (01) ==
LOC: JER 14:24
PROC: 3E0F7GC Introduction of Other Therapeutic Substance into Respiratory Tract, Via Natural or Artificial Opening (ICD-10-PCS; principal; 2019-08-16)
PROC: 3E0337Z Introduction of Electrolytic and Water Balance Substance into Peripheral Vein, Percutaneous Approach (ICD-10-PCS; 2019-08-16)
PROC: 3E0333Z Introduction of Anti-inflammatory into Peripheral Vein, Percutaneous Approach (ICD-10-PCS; 2019-08-16)
DX: I30.9 Acute pericarditis, unspecified (principal)
CPT/HCPCS: 36415; 71046-TC-FY; 80053; 84484; 85025; 93005; 93010; 94640; 96361; 96374; 99285-25; J7030

== ENCOUNTER 2019-08-20 13:10 | Emergency (ER) | payer OTHER ==
--- NOTE | 2019-08-20 13:50 | PDOC ---
Rapid Medical Evaluation Time Seen by Provider: 08/20/19 13:28 Medical Evaluation: Allergies Allergy/AdvReac Type Severity Reaction Status Date / Time amoxicillin [Amoxicillin] Allergy Verified 08/20/19 13:47 08/20/19 13:49 CC: diffuse chest pain. recent dx pericarditis. Pain resolved after dx and has now returned. PE: No focal findings Orders: cardiac w/u Patient will proceed to the ED for further evaluation. Discharge Disposition - Diagnosis Chest pain - Referrals Referrals: Joselito Eduardo MD [Primary Care Provider] - - Patient Instructions - Post Discharge Activity
[2019-08-20 13:51] VITALS: PULSE 62; BMI 23.6
[2019-08-20 15:29] LABS: BASO % 0.7 % (0-2.0); EOS % 2.2 % (0-4.5); HEMATOCRIT 40.2 % (35.4-49); HEMOGLOBIN 13.5 GM/dL (11.7-16.9); LYMPH % 38.5 % (8-40); MCH 28.9 pg (25.7-33.7); MCHC 33.5 g/dl (32.0-35.9); MEAN CELL VOLUME 86.3 fl (80-96); MEAN PLT VOLUME 8.1 fl (7.5-11.1); MONO % 11.1 % (3.8-10.2); NEUT % 47.5 % (42.8-82.8); PLATELET COUNT 237 K/MM3 (134-434); RBC 4.66 M/mm3 (4.00-5.60); RDW 13.1 % (11.9-15.9); WHITE BLOOD COUNT 5.3 K/mm3 (4.0-10.0)
--- NOTE | 2019-08-20 15:39 | EKG ---
Test Reason : Blood Pressure : / mmHG Vent. Rate : 052 BPM Atrial Rate : 052 BPM P-R Int : 176 ms QRS Dur : 096 ms QT Int : 400 ms P-R-T Axes : 072 075 071 degrees QTc Int : 372 ms SINUS BRADYCARDIA EARLY REPOLARIZATION Confirmed by MD Shankar Edward ([id number]) on 08/20/2019 3:38:52 PM Referred By: Confirmed By:Christ Shankar MD
[2019-08-20 15:48] LABS: ALBUMIN 4.2 g/dl (3.4-5.0); BILIRUBIN,TOTAL 0.5 mg/dL (0.2-1); BLOOD UREA NITROGEN 7.8 mg/dL (7-18); CALCIUM 9.2 mg/dL (8.5-10.1); CREATININE 0.8 mg/dL (0.55-1.3); MAGNESIUM 1.9 mg/dL (1.8-2.4); POTASSIUM 3.9 mmol/L (3.5-5.1); TOT PROT 7.2 g/dl (6.4-8.2)
[2019-08-20] MEDS ORDERED: ACETAMINOPHEN 325 MG TABLET (FP) PO ONE (15:57)
[2019-08-20] MEDS ORDERED: IBUPROFEN 600 MG TABLET (FP) PO ONE ×2 (15:57→17:14)
--- NOTE | 2019-08-20 16:35 | PDOC ---
Documentation entered by Leny De Los Santos SCRIBE, acting as scribe for Janet Reinoso MD. Janet Reinoso MD: This documentation has been prepared by the Filiberto mooney Nirvannie, SCRIBE, under my direction and personally reviewed by me in its entirety. I confirm that the documentation accurately reflects all work, treatment, procedures, and medical decision making performed by me. History of Present Illness - General Chief Complaint: Chest Pain Stated Complaint: CHEST PAIN Time Seen by Provider: 08/20/19 13:28 History Source: Patient Exam Limitations: No Limitations - History of Present Illness Initial Comments: 08/20/19 16:48 HPI: The patient is a 28 year old male, with a significant past medical history of possible pericarditis, who presents to the emergency department with 1.5 week of worsening chest pain. He describes his chest pain as worse while lying flat and alleviated when hunched forward. He further notes it initially onset as right sided now progressing to the left side. As per EMR, he was tested influenza positive 2 weeks ago and approximately a week ago he developed chest pain and was admitted to [facility] for pericarditis. EMR notes to have been evaluated in his PCPs office at which time he received an echocardiogram and was told he does not have pericarditis. Patient was further evaluated in the ED 08/16 with similar symptoms and notes his symptoms have been persistent despite taking Colchicine and Ibuprofen, without improvement prompting his arrival to the ED. admits to using marijuana, last used last night He denies any trauma to the chest. He denies any diaphoresis, palpitations, nausea, or vomiting. Allergies: Amoxicillin. Primary Care Physician: Dr. Eduardo ROS: Constitutional: no fevers or chills. HEENT: no headache or dizziness. No congestion. No visual/hearing disturbances. CVS: + cp No syncope. Resp: no sob. + cough. Gastrointestinal: no abdominal pain, nausea or vomiting. Genitourinary: no urinary sx, hematuria. MUSCULOSKELETAL: No joint pain and swelling. No neck or back pain. SKIN: no redness or skin changes, no discharge, no rash. No wounds. Hematologic: no easy bruising/bleeding. NEUROLOGIC: No headache, dizziness, LOC or altered mental status. No weakness, numbness or tingling. Psych: no anxiety or depression Allergic/Immunologic: no allergies All other systems reviewed and negative, or as documented in HPI. Physical exam: General: Well appearing, awake and alert, NAD. HEENT: NCAT, PERRL, EOMI, clear conjunctiva, anicteric, moist mucus membranes, clear oropharynx, no oral lesions.. Neck: neck supple, FROM Resp: CTAB, normal and even respirations, no respiratory distress CVS: RRR, no murmurs, 2+ peripheral pulses throughout, no peripheral edema Abdomen: soft, NTND, no rebound or guarding. No CVAT. Back: nontender, normal inspection and ROM MSK: no edema, LUTZ x4, ROM intact. No clubbing or cyanosis. normal bulk and tone. Extremities: no calf tenderness Neuro: alert, oriented appropriately; no focal neurologic deficits Psych: Calm and cooperative Skin: warm and well perfused, cap refill <2 sec, normal color 08/22/19 07:40 Past History - Past Medical History Allergies/Adverse Reactions: Allergies Allergy/AdvReac Type Severity Reaction Status Date / Time amoxicillin [Amoxicillin] Allergy Verified 08/20/19 13:47 Home Medications: Ambulatory Orders Colchicine [Colcrys] 0.6 mg PO BID 08/16/19 Ibuprofen 800 mg PO TID 7 Days #21 tablet 08/16/19 Ibuprofen [Ibu] 600 mg PO Q8H PRN 08/16/19 Indomethacin 50 mg PO TID PRN #30 capsule 08/20/19 COPD: No - Immunization History Immunization Up to Date: Yes - Psycho Social/Smoking Cessation Hx Smoking History: Current every day smoker Have you smoked in the past 12 months: Yes Number of Cigarettes Smoked Daily: 0 Information on smoking cessation initiated: Yes Hx Alcohol Use: No Drug/Substance Use Hx: Yes *Physical Exam - Vital Signs Last Vital Signs Temp Pulse Resp BP Pulse Ox 97.5 F L 62 16 118/75 100 08/20/19 17:27 08/20/19 17:27 08/20/19 17:27 08/20/19 17:27 08/20/19 17:27 ED Treatment Course - LABORATORY CBC & Chemistry Diagram: 08/20/19 14:47 08/20/19 14:47 - ADDITIONAL ORDERS Additional order review: 08/20/19 14:47 RBC 4.66 MCV 86.3 MCHC 33.5 RDW 13.1 MPV 8.1 Neutrophils % 47.5 Lymphocytes % 38.5 Monocytes % 11.1 H Eosinophils % 2.2 D Basophils % 0.7 - Medications Given in the ED: ED Medications Discontinued Medications Generic Name Dose Route Start Last Admin Trade Name Cosmoq PRN Reason Stop Dose Admin Acetaminophen 1,000 mg 08/20/19 15:57 08/20/19 17:00 Tylenol - PO 08/20/19 15:58 1,000 mg ONCE ONE Administration Ibuprofen 600 mg 08/20/19 15:57 08/20/19 17:00 Motrin - PO 08/20/19 15:58 600 mg ONCE ONE Administration Medical Decision Making - Medical Decision Making 08/20/19 16:34 Vital Signs Temp Pulse Resp BP Pulse Ox 98.2 F 62 18 128/89 100 08/20/19 13:48 08/20/19 13:48 08/20/19 13:48 08/20/19 13:48 08/20/19 13:48 ddx. DDx chest pain: ACS, coronary vasospasm, NSTEMI, arrhythmia, unstable angina, PE, dissection, PUD, esophageal spasm, GERD, gastritis, costochondritis , pneumonia, pleurisy, pericarditis/myocarditis. dehydration, electrolyte/ metabolic derangements. Considered but clinically doubt based on HPI and PE: Low suspicion for pulmonary embolism or dissection. Chest pain negative: No evidence of ACS, pericarditis, myocarditis, pulmonary embolism, pneumothorax, pneumonia, Zoster, or esophageal perforation. Historically not abrupt in onset, tearing or ripping, pulses symmetric, no evidence of aortic dissection. EKG sinus bradycardia at 52 bpm, no interval abnormalities, narrow QRS, no TN depressions, uploping ST segments without ST depressions, T wave segments and morphology normal. Nonspecific T wave abnormalities, unchanged from prior Chest pain HEART score _ which denotes Low risk and probability for ACS, less than 1% risk for MACE at 4-6 wks bedside pocus echo with normal EF, no pericardial effusion, RV<LV. trop neg, reassuring lytes and labs wnl given tylenol/ibuprofen no fever, HD appropriate. nontoxic appearing. no e/o Fever (>38C [100.4F]), subacute course, cardiac tamponade/hemodynamic collapse, or effusion, no NOACS/anticoagulants, trauma or elevated trop. will change to indomethacin nsaid, as pt has been taking intermittently pt also smokes marijuana, last used last night as likely trigger/exacerbation of cp advised cessation of cannibis use due to side effect profile and exacerbation of sx. Pt to be discharged in stable condition. Patient and family made aware of clinical impression, treatment recommendations and disposition plan, return precautions discussed (including but not limited to new or persistent/worsening symptoms, pain, fevers, or signs of infection, chest pain, respiratory distress , inability to tolerate oral intake, dehydration, syncope, or neurologic changes ). Follow up with PMD and/or polymerization oven tender specialist as recommended, follow up information provided, take medications as instructed for duration of time. continue with supportive care, avoid triggers and precipitants. All questions answered to patient's satisfaction and expressed understanding and comfort with this. At the time of discharge, the patient is alert, clinically improved, tolerating po and verbalizes understanding of instructions, satisfied with the care received and felt comfortable with the plan. Patient does not suffer from an acute life-threatening medical condition at this time and is safe for outpatient follow-up. 08/22/19 07:40 Discharge - Discharge Information Problems reviewed: Yes Clinical Impression/Diagnosis: Chest pain Condition: Stable Disposition: HOME - Admission No - Additional Discharge Information Prescriptions: Indomethacin 50 mg PO TID PRN #30 capsule PRN Reason: Pain - Follow up/Referral Referrals: Joselito Eduardo MD [Primary Care Provider] - Galileo Pinto MD [Staff Physician] - James Styles MD [Staff Physician] - Portillo Lamar MD [Staff Physician] - - Patient Discharge Instructions Patient Printed Discharge Instructions: DI for Pericarditis, DI for Viral Syndrome, DI for Chest Pain Additional Instructions: 1) Please follow-up with your primary care doctor in the next 1-2 days. Please call tomorrow for for any urgent issues. you should also follow up with a polymerization oven tender, referrals given for appropriate reevaluation. 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 Please bring the results with you and review them with your primary care doctor. Your laboratory / imaging results were normal, including cardiac enzymes and labs and bedside u ltrasound of your heart, normal function grossly and no effusion/fluid around your heart. 3) If you have any worsening of symptoms or any other concerns please return to the ED immediately. Return if worsening symptoms including fevers, headache, vomiting, visual or hearing disturbances, abdominal pain, chest pain, shortness of breath, syncope, dehydration, inability to take things by mouth/vomiting, altered mental status, or worsening concerning symptoms. 4) Please continue taking your home medications as directed. your medications on discharge include Indomethacin 50mg three times a day as needed for the chest pain (stop taking the ibuprofen, do not take multiple anti inflammatories at the same time and do as instructed here). side effects may include upset stomach, abdominal pain, vomiting, or diarrhea. do not drink alcohol with your medications. keep taking the Colchicine as prescribed previously. Stay well hydrated and rest adequately. do not smoke cigarettes or marijuana, as that can make things worse with your breathing and pain. If you cannot follow-up with your primary care doctor please return to the ED salt water gargles, 1-2 spoonful of honey and warm lemon tea is appropriate as well for soothing qualities for sore throat/cough. minimize spread of infection given contagious nature, and cover your mouth and wash your hands adequately with soap and water. Stay well hydrated and rest. Cool air - walk around outdoors in the evening. May also try hot shower steam. This can alleviate the congestion and cough. You can also use Riccola - dual action with lemon/honey to soothe your throat and cough. - Post Discharge Activity
[2019-08-20] MEDS ORDERED: ACETAMINOPHEN 325 MG TABLET (FP) ONE (17:14)
[2019-08-20 17:26] LABS: EPI CELLS 0.9 /HPF (0-5/HPF); HYALINE CASTS 4 /lpf (0-8); URINE APPEARANCE CLEAR; URINE BACTERIA 4.1 /hpf (NEGATIVE); URINE BILIRUBIN NEGATIVE (NEGATIVE); URINE COLOR YELLOW; URINE GLUCOSE (UA) NEGATIVE (NEGATIVE); URINE KETONE 1+ (NEGATIVE); URINE LEUK ESTERASE NEGATIVE (NEGATIVE); URINE NITRITE NEGATIVE (NEGATIVE); URINE PROTEIN NEGATIVE (NEGATIVE); URINE RBC 18 /hpf (0-4); URINE UROBILINOGEN 0.2 mg/dL (0.2-1.0); URINE WBC 2 /hpf (0-5)
[2019-08-20 17:28] VITALS: BP 118/75; TEMP 97.5
[2019-08-20 18:11] LABS: COCAINE, UR NEGATIVE ng/ml (CUTOFF=300); METHADONE, UR NEGATIVE ng/ml (CUTOFF=300); OPIATES, URI NEGATIVE ng/ml (CUTOFF=300); PHENCYCLIDINE,URINE NEGATIVE ng/ml (CUTOFF=25); URINE AMPHETAMINES NEGATIVE ng/ml (CUTOFF=500); URINE BARBITURATES NEGATIVE ng/ml (CUTOFF=200); URINE BENZODIAZEPINES NEGATIVE ng/ml (CUTOFF=200)
== END 2019-08-20 17:28 | disposition home or self-care (01) ==
LOC: JER 13:10
DX: R07.9 Chest pain, unspecified (principal); F17.210 Nicotine dependence, cigarettes, uncomplicated; Z88.0 Allergy status to penicillin
CPT/HCPCS: 36415; 71046-TC-FY; 80053; 80307; 81003; 82550; 83735; 84484; 85025; 93005; 93010; 93308; 99282-25

== ENCOUNTER 2023-01-21 07:54 | Emergency (ER) | payer OTHER ==
[2023-01-21 07:58] VITALS: BP 127/71; PULSE 70; RESP 18; TEMP 98; BMI 25.8
[2023-01-21] MEDS ORDERED: ACETAMINOPHEN 500 MG TABLET (FP) PO ONE (08:53)
[2023-01-21] MEDS ORDERED: LIDOCAINE 5% TOPICAL PATCH TP ONE (08:53)
[2023-01-21] MEDS ORDERED: LOPERAMIDE HCL 2 MG CAPSULE PO ONE (08:58)
[2023-01-21] MEDS ORDERED: ONDANSETRON *ODT* 4 MG TABLET SL ONE (08:58)
[2023-01-21] MEDS ORDERED: LIDOCAINE 5% TOPICAL PATCH ONE (09:14)
[2023-01-21] MEDS ORDERED: ACETAMINOPHEN 325 MG TABLET (FP) ONE (09:15)
[2023-01-21 09:58] LABS: EOS % 7.7 % (0-4.5); HEMATOCRIT 44.7 % (35.4-49); HEMOGLOBIN 14.6 GM/dL (11.7-16.9); LYMPH % 36.3 % (8-40); MCH 28.1 pg (25.7-33.7); MCHC 32.7 g/dl (32.0-35.9); MEAN PLT VOLUME 8.8 fl (7.5-11.1); MONO % 12.7 % (3.8-10.2); NEUT % 42.3 % (42.8-82.8); PLATELET COUNT 194 10^3/uL (134-434); RDW 13.2 % (11.9-15.9); WHITE BLOOD COUNT 4.3 K/mm3 (4.0-10.0)
[2023-01-21] MEDS ORDERED: INDOMETHACIN 50 MG CAPSULE PO ONE (10:17)
[2023-01-21 10:38] LABS: CHLORIDE 103 mmol/L (98-107); POTASSIUM 4.5 mmol/L (3.5-5.1); SODIUM 139 mmol/L (136-145)
[2023-01-21 10:40] LABS: ALBUMIN 4.2 g/dl (3.4-5.0)
[2023-01-21 10:41] LABS: ANION GAP 7 MMOL/L (8-16); BLOOD UREA NITROGEN 8.2 mg/dL (7-18); CO2 29 mmol/L (21-32); GLUCOSE,RANDOM 107 mg/dL (74-106)
[2023-01-21 10:43] LABS: SGOT/AST 14 U/L (15-37)
[2023-01-21 10:44] LABS: SGPT/ALT 22 U/L (13-61)
[2023-01-21 10:45] LABS: BILIRUBIN,TOTAL 0.9 mg/dL (0.2-1); TOT PROT 7.7 g/dl (6.4-8.2)
[2023-01-21 10:46] LABS: ALK PHOS 65 U/L (45-117)
[2023-01-21 10:51] LABS: ERYTHROCYTE SEDIMENTATION RATE 2 mm/hr (0-10)
[2023-01-21] MEDS ORDERED: LIDOCAINE PATCH REMOVAL MC SCH (22:00)
== END 2023-01-21 12:00 | disposition home or self-care (01) ==
LOC: JER 07:54
DX: R06.02 Shortness of breath (principal); R07.9 Chest pain, unspecified; R11.2 Nausea with vomiting, unspecified; R05.9 Cough, unspecified; Z20.822 Contact with and (suspected) exposure to COVID-19
CPT/HCPCS: 0241U-QW; 36415; 71046-TC-FY; 80053; 84484; 85025; 85651; 86140; 93005; 93010; 99285-25